=== PATIENT | female | born 1950 | race Caucasian/White ===

== ENCOUNTER 2021-07-31 17:53 | Emergency (ER) | payer MEDICARE, BC | END 2021-07-31 19:15 | disposition home or self-care (01) | LOC: LL.ED 17:53 | DX: R89.9 Unspecified abnormal finding in specimens from other organs, systems and tissues (principal); K21.9 Gastro-esophageal reflux disease without esophagitis; Z79.899 Other long term (current) drug therapy | CPT/HCPCS: 36415; 83735; 99283 ==